=== PATIENT | female | born 1990 | race American Indian/Alaskan Native ===

== ENCOUNTER 2016-12-29 07:52 | Emergency (ER) | payer SELFPAY ==
[2016-12-29 08:32] LABS: Basophils % (Auto) 0.7 % (0.0-1.8); Eosinophils % (Auto) 1.2 % (0.0-4.3); Hematocrit 38.6 % (30.3-42.9); Hemoglobin 12.8 gm/dl (10.1-14.3); Mean Corpuscular HGB Conc 33 % (30-34); Mean Corpuscular Hemoglobin 27 pg (28-32); Mean Corpuscular Volume 81 fl (79-97); Platelet Count 168 K/mm3 (140-440); Red Blood Count 4.76 M/mm3 (3.65-5.03); Red Cell Distribution Width 16.1 % (13.2-15.2); White Blood Count 4.6 K/mm3 (4.5-11.0)
[2016-12-29 08:52] LABS: Bilirubin,Urine NEG (Negative); Blood,Urine NEG (Negative); Ketones,Urine NEG (Negative); Leukocyte Esterase,Urine NEG (Negative); Mucus,Urine 1+ /HPF; Nitrite,Urine NEG (Negative); Protein,Urine <15 mg/dL mg/dL (Negative); Urobilinogen,Urine < 2.0 mg/dL (<2.0)
[2016-12-29 10:32] LABS: Alanine Aminotransferase 8 units/L (7-56); Albumin 4.3 g/dL (3.9-5); Albumin/Globulin Ratio 1.4 %; Alkaline Phosphatase 53 units/L (35-129); Anion Gap 18 mmol/L; BUN/Creatinine Ratio 15; Blood Urea Nitrogen 9 mg/dL (7-17); Carbon Dioxide 27 mmol/L (22-30); Chloride 101.2 mmol/L (98-107); Glucose 82 mg/dL (65-100); Lipase 18 units/L (13-60); Potassium 4.2 mmol/L (3.6-5.0); Sodium 142 mmol/L (137-145); Total Protein 7.3 g/dL (6.3-8.2)
[2016-12-29 12:08] VITALS: BP 138/60
--- NOTE | 2016-12-29 12:12 | Emergency Department Report ---
HPI - General Chief Complaint: Abdominal Pain Time Seen by Provider: 12/29/16 12:03 - HPI HPI: This is a 26-year-old (female presents to the emergency department complaint of upper abdominal pain along with some nausea without vomiting and has been going on since last night. However it worsened this morning and the patient says that she was "curled in a ball" secondary to the pain. She denies any fever, dysuria, vaginal bleeding or discharge. She did not take anything for her symptoms prior to presentation. She says she just moved here and therefore does not have a primary care doctor or [employer]. No sick contacts at home. She does have a history of previous gallstones but does not have any cholecystectomy. ED Past Medical Hx - Past Medical History Previous Medical History?: Yes Additional medical history: gallstones 2011 - Surgical History Past Surgical History?: No - Social History Smoking Status: Current Some Day Smoker Substance Use Type: None - Medications Home Medications: Home Medications Medication Instructions Recorded Confirmed Last Taken Type HYDROcodone/ACETAMINOPHEN [[place] 1 each PO Q6H PRN #10 tablet 12/29/16 Unknown Rx 5-325 Tablet] ED Review of Systems ROS: Stated complaint: ABD PAIN - POSSIBLE GALLBLADDER Other details as noted in HPI Comment: All other systems reviewed and negative Constitutional: denies: chills, fever Eyes: denies: eye pain, eye discharge, vision change ENT: denies: ear pain, throat pain Respiratory: denies: cough, shortness of breath, wheezing Cardiovascular: denies: chest pain, palpitations Gastrointestinal: abdominal pain, nausea. denies: vomiting Genitourinary: denies: urgency, dysuria, discharge Musculoskeletal: denies: back pain, joint swelling, arthralgia Skin: denies: rash, lesions Neurological: denies: headache, weakness, paresthesias Physical Exam - Physical Exam Vital Signs: Vital Signs 12/29/16 07:58 Temperature 98.4 F Pulse Rate 62 Respiratory 18 Rate Blood Pressure 138/60 O2 Sat by Pulse 100 Oximetry Physical Exam: GENERAL: The patient is well-developed well-nourished. HENT: Normocephalic. Atraumatic. Patient has moist mucous membranes. EYES: Extraocular motions are intact. Pupils equal reactive to light bilaterally. NECK: Supple. Trachea is midline. CHEST/LUNGS: Clear to auscultation. There is no respiratory distress noted. HEART/CARDIOVASCULAR: Regular. There is no tachycardia. There is no gallop rub or murmur. ABDOMEN: Abdomen is soft. There is some tenderness palpation to the upper clutches the abdomen. No guarding or rebound tenderness. No peritoneal signs. Patient has normal bowel sounds. There is no abdominal distention. SKIN: There is no rash. There is no edema. There is no diaphoresis. NEURO: The patient is awake, alert, and oriented. The patient is cooperative. The patient has no focal neurologic deficits. The patient has normal speech. MUSCULOSKELETAL: There is no tenderness or deformity. There is no limitation range of motion. There is no evidence of acute injury. ED Course Vital Signs 12/29/16 07:58 Temperature 98.4 F Pulse Rate 62 Respiratory 18 Rate Blood Pressure 138/60 O2 Sat by Pulse 100 Oximetry ED Medical Decision Making - Lab Data Result diagrams: 12/29/16 08:09 12/29/16 08:09 - Radiology Data Radiology results: report reviewed, image reviewed interpreted by me: Abdominal x-ray shows some nonspecific nonobstructive bowel gas. Upper abdominal ultrasound does not show any cholelithiasis or any other acute process and was read as a normal examination. - Medical Decision Making 26-year-old female presents with some upper abdominal pain. Labs are unremarkable including normal belly labs such as bilirubin and lipase and LFTs. No leukocytosis. Patient is not and there is no urinary tract infection. Abdominal x-ray shows nonspecific nonobstructive bowel gas. Ultrasound does not show any cholelithiasis, cholecystitis or any other acute process. Patient was discharged home with some pain medication and referrals for primary care and gastroenterology. She will return to the ER with any worsening of her symptoms or any acute distress. - Differential Diagnosis cholelithiasis, cholecystitis, pancreatitis, , fibroids Critical Care Time: No Critical care attestation.: If time is entered above; I have spent that time in minutes in the direct care of this critically ill patient, excluding procedure time. ED Disposition Clinical Impression: Abdominal pain Qualifiers: Abdominal location: upper abdomen, unspecified Qualified Code(s): R10.10 - Upper abdominal pain, unspecified Disposition: DC-01 TO HOME OR SELFCARE Is pt being admited?: No Condition: Stable Instructions: Abdominal Pain (ED) Additional Instructions: Please follow up with a primary care physician in the next few days. I have also given you a referral for a local bilingual branch manager, Dr. Stein, in order to follow-up with [employer]ER or abdominal pain. Return to the emergency Department with any worsening of your symptoms or any acute distress. You have been prescribed a medication that is sedating and therefore should not be taken prior to driving, working, and responsible for children and in no way should be mixed with alcohol of any quantity. Prescriptions: HYDROcodone/ACETAMINOPHEN [[place] 5-325 Tablet] 1 each PO Q6H PRN #10 tablet PRN Reason: Pain Referrals: PRIMARY CARE, [Primary Care Provider] - 3-5 Days NARCISO STEIN MD [Staff Physician] - 3-5 Days DANIEL THOMAS MD [Staff Physician] - 3-5 Days [facility] [Outside] - 3-5 Days Forms: Work/School Release Form(ED) Time of Disposition: 14:01
--- NOTE | 2016-12-29 13:21 | Ultrasound Report ---
Sonogram right upper quadrant: History: Upper abdominal pain, history of gallstones. Findings: Normal liver. No intrahepatic or extrahepatic duct dilatation. Common bile duct diameter of 1.9 mm. No gallbladder wall thickness 1.4 mm. No calculi in the gallbladder. No pericholecystic fluid. Right kidney 10.7 x 4 x 5.5 cm. Cortical thickness 1.2 cm. Normal pancreas. Impression: Essentially negative sonogram right upper quadrant.
--- NOTE | 2016-12-29 13:53 | XRay Report ---
Abdomen 2 views: History: Abdominal pain. Findings: No free intraperitoneal air. No bowel distention or wall thickening. No radiopaque calculus or abnormal calcification. Impression: Essentially negative abdomen .
== END 2016-12-29 14:13 | disposition home or self-care (01) ==
LOC: ED 07:52
DX: R10.10 Upper abdominal pain, unspecified (principal); F17.210 Nicotine dependence, cigarettes, uncomplicated
CPT/HCPCS: 36415; 74020; 76705; 80053; 81001; 83690; 84703; 85025; 99284